=== PATIENT | male | born 1970 | race Caucasian/White ===

== ENCOUNTER 2019-10-06 18:15 | Emergency (ER) | payer OTHER ==
[~2019-10-06] VITALS: Ht 172.7 cm; Wt 99.8 kg
[2019-10-06] MEDS ORDERED: PERCOCET 5-3251 EACH PO (19:36)
[2019-10-06 19:50] VITALS: BP 118/68
== END 2019-10-06 19:50 | disposition home or self-care (01) ==
LOC: M.ERS 18:15
DX: S52.572A Other intraarticular fracture of lower end of left radius, initial encounter for closed fracture (principal); Z90.49 Acquired absence of other specified parts of digestive tract; W10.8XXA Fall (on) (from) other stairs and steps, initial encounter; Y93.89 Activity, other specified; Y92.89 Other specified places as the place of occurrence of the external cause; Y99.8 Other external cause status